=== PATIENT | female | born 1955 | race Caucasian/White ===

== ENCOUNTER 2019-05-10 09:16 | Emergency (ER) | payer MEDICARE ==
--- NOTE | 2019-05-10 09:49 | EDPHYS ---
Physician Documentation [facility] Name: Dinora Forrest Age: 63 yrs Sex: Female : 1955 Arrival Date: 05/10/2019 Time: 09:18 Bed 20 Private MD: Alexis Gaffney E ED Physician Guicho Powell HPI: 05/10 09:47 This 63 yrs old Female presents to ER via Ambulatory with complaints of pm1 Medication Refill. 09:47 The patient presents to the emergency department requesting refill(s) for: metoprolol, pm1 valium, lisinopril, trazadone, and protonix. The patient chronically suffers from chronic back pain, anxiety, HTN. The patient has not recently seen a physician, Patient missed her appointment with her PCP yesterday and reports that she has ran out of her medications. patient receives [place] and baclofen from her pain management physician. Historical: - Allergies: 09:37 Benadryl; sv - Home Meds: 09:37 metoprolol tartrate 50 mg oral tab once daily [Active]; Valium 10 mg Oral tab 1 tab 2 sv times per day [Active]; baclofen 10 mg Oral tab Q8h [Active]; [place] 10-325 mg Oral tab 1 tab every 6 hours [Active]; lisinopril 20 mg Oral tab 1 tab once daily [Active]; trazodone 150 mg Oral tab nightly [Active]; Protonix 40 mg Oral TbEC 1 tab once daily [Active]; - PMHx: 09:37 gastric ulcer; Hypertension; Anxiety; sv - PSHx: 09:37 back surgery; sv - Immunization history:: Adult Immunizations up to date. - Social history:: Smoking status: unknown. - Ebola Screening: : No symptoms or risks identified at this time. ROS: 09:47 Constitutional: Negative for fever, chills, and weight loss, Eyes: Negative for injury, pm1 pain, redness, and discharge, ENT: Negative for injury, pain, and discharge, Neck: Negative for injury, pain, and swelling, Cardiovascular: Negative for chest pain, palpitations, and edema, Respiratory: Negative for shortness of breath, cough, wheezing, and pleuritic chest pain, Abdomen/GI: Negative for abdominal pain, nausea, vomiting, diarrhea, and constipation. 09:47 : Negative for injury, bleeding, discharge, and swelling, MS/Extremity: Negative for injury and deformity, Skin: Negative for injury, rash, and discoloration, Neuro: Negative for headache, weakness, numbness, tingling, and seizure. 09:47 Back: Positive for chronic back pain managed by pain management. Exam: 09:47 Constitutional: This is a well developed, well nourished patient who is awake, alert, pm1 and in no acute distress. Head/Face: Normocephalic, atraumatic. Neck: Trachea midline, no thyromegaly or masses palpated, and no cervical lymphadenopathy. Supple, full range of motion without nuchal rigidity, or vertebral point tenderness. No Meningismus. Chest/axilla: Normal chest wall appearance and motion. Nontender with no deformity. No lesions are appreciated. Cardiovascular: Regular rate and rhythm with a normal S1 and S2. No gallops, murmurs, or rubs. Normal PMI, no JVD. No pulse deficits. Respiratory: Lungs have equal breath sounds bilaterally, clear to auscultation and percussion. No rales, rhonchi or wheezes noted. No increased work of breathing, no retractions or nasal flaring. Back: No spinal tenderness. No costovertebral tenderness. Full range of motion. Skin: Warm, dry with normal turgor. Normal color with no rashes, no lesions, and no evidence of cellulitis. MS/ Extremity: Pulses equal, no cyanosis. Neurovascular intact. Full, normal range of motion. 09:47 Neuro: Orientation: is normal, Motor: is normal, moves all fours, Gait: is steady, at a normal pace, without difficulty. Vital Signs: 09:37 BP 153 / 87; Pulse 62; Resp 20; Temp 98.3; Pulse Ox 98% ; Weight 54.43 kg; Height 5 ft. sv 2 in. (157.48 cm); 09:37 Body Mass Index 21.95 (54.43 kg, 157.48 cm) sv MDM: 09:24 Patient medically screened. pm1 09:47 Data reviewed: vital signs. Data interpreted: Pulse oximetry: on room air is 98 %. pm1 Interpretation: normal. Counseling: I had a detailed discussion with the patient and/or guardian regarding: the historical points, exam findings, and any diagnostic results supporting the discharge/admit diagnosis, the need for outpatient follow up, PCP for refills of her medication. 09:47 ED course: Patient sees pain management for chronic pain and is prescribed [place] and pm1 baclofen. PCP prescribes the rest of her medication including Valium 10 mg. Instructed patient to follow up with PCP or pain management for refill of her Valium. Administered Medications: No medications were administered Disposition: 14:01 Co-signature as Attending Physician, Guicho Powell MD. rn Disposition: 05/10/19 09:48 Discharged to Home. Impression: Encounter for issue of repeat prescription. - Condition is Stable. - Discharge Instructions: Medicine Refill at the Emergency Department. - Prescriptions for trazodone 150 mg Oral tablet - take 1 tablet by ORAL route Every night; 14 tablet. Protonix 40 mg Oral Tablet, Delayed Release (E.C.) - take 1 tablet by ORAL route once daily; 14 tablet. Lisinopril 20 mg Oral Tablet - take 1 tablet by ORAL route once daily; 14 tablet. Metoprolol Tartrate 50 mg Oral Tablet - take 1 tablet by ORAL route once daily take with meal; 14 tablet. - Medication Reconciliation Form, Thank You Letter, Antibiotic Education, Prescription Opioid Use form. - Follow up: Emergency Department; When: As needed; Reason: Worsening of condition. Follow up: Alexis Gaffney MD; When: 2 - 3 days; Reason: Recheck today's complaints, Continuance of care, Re-evaluation by your physician. - Problem is new. - Symptoms have improved. Signatures: Sandie Babcock RN RN sv Nieto, Roman, MD MD rn Marinas, Patrick, NP [employer] pm1 Corrections: (The following items were deleted from the chart) 10:46 09:48 05/10/2019 09:48 Discharged to Home. Impression: Encounter for issue of repeat sv prescription. Condition is Stable. Forms are Medication Reconciliation Form, Thank You Letter, Antibiotic Education, Prescription Opioid Use. Follow up: Emergency Department; When: As needed; Reason: Worsening of condition. Follow up: Alexis Gaffney; When: 2 - 3 days; Reason: Recheck today's complaints, Continuance of care, Re-evaluation by your physician. Problem is new. Symptoms have improved. pm1
--- NOTE | 2019-05-10 09:49 | ER ---
Nurse's Notes [facility] Name: Dinora Forrest Age: 63 yrs Sex: Female : 1955 Arrival Date: 05/10/2019 Time: 09:18 Bed 20 Private MD: Alexis Gaffney E Diagnosis: Encounter for issue of repeat prescription Presentation: 05/10 09:31 Presenting complaint: Patient states: needs BP, stomach ulcer, anxiety med refilled. sv Missed her appt yesterday at Dr Gaffney office. Transition of care: patient was not received from another setting of care. Onset of symptoms was May 10, 2019. Initial Sepsis Screen: Does the patient meet any 2 criteria? No. Patient's initial sepsis screen is negative. Does the patient have a suspected source of infection? No. Patient's initial sepsis screen is negative. Care prior to arrival: None. 09:31 Method Of Arrival: Ambulatory sv 09:31 Acuity: MIRTA 5 sv 09:31 Risk Assessment: Do you want to hurt yourself or someone else? Patient reports no sv desire to harm self or others. Triage Assessment: 09:31 General: Appears in no apparent distress. comfortable, Behavior is calm, cooperative, sv appropriate for age. Pain: Denies pain. Neuro: Level of Consciousness is awake, alert, obeys commands, Gait is steady. Respiratory: Airway is patent Respiratory effort is even, unlabored, Respiratory pattern is regular, symmetrical. Derm: Skin is normal. Historical: - Allergies: 09:37 Benadryl; sv - Home Meds: 09:37 metoprolol tartrate 50 mg oral tab once daily [Active]; Valium 10 mg Oral tab 1 tab 2 sv times per day [Active]; baclofen 10 mg Oral tab Q8h [Active]; [place] 10-325 mg Oral tab 1 tab every 6 hours [Active]; lisinopril 20 mg Oral tab 1 tab once daily [Active]; trazodone 150 mg Oral tab nightly [Active]; Protonix 40 mg Oral TbEC 1 tab once daily [Active]; - PMHx: 09:37 gastric ulcer; Hypertension; Anxiety; sv - PSHx: 09:37 back surgery; sv - Immunization history:: Adult Immunizations up to date. - Social history:: Smoking status: unknown. - Ebola Screening: : No symptoms or risks identified at this time. Screenin:31 Abuse screen: Denies threats or abuse. Denies injuries from another. Abuse screen: sv Denies threats or abuse. Nutritional screening: No deficits noted. Tuberculosis screening: No symptoms or risk factors identified. Fall Risk None identified. Assessment: 10:04 Reassessment: Patient appears in no apparent distress at this time. No changes from sv previously documented assessment. Patient and/or family updated on plan of care and expected duration. Pain level reassessed. Patient is alert, oriented x 3, equal unlabored respirations, skin warm/dry/pink. Vital Signs: 09:37 BP 153 / 87; Pulse 62; Resp 20; Temp 98.3; Pulse Ox 98% ; Weight 54.43 kg; Height 5 ft. sv 2 in. (157.48 cm); 09:37 Body Mass Index 21.95 (54.43 kg, 157.48 cm) sv ED Course: 09:18 Patient arrived in ED. rg4 09:18 Alexis Gaffney MD is Private Physician. rg4 09:24 Delmar De Leon [facility]. pm1 09:24 Guicho Powell MD is Attending Physician. pm1 09:24 Sandie Babcock RN is Primary Nurse. sv 09:31 Arm band placed on Patient placed in an exam room, on a stretcher. sv 09:31 Patient has correct armband on for positive identification. Bed in low position. Door sv closed. Head of bed elevated. 09:32 Triage completed. sv 09:37 Nurse Practitioner and/or Physician Senior Environmental Consultant to see patient. sv 09:47 Alexis Gaffney MD is Referral Physician. pm1 10:04 No provider procedures requiring assistance completed. Patient did not have IV access sv during this emergency room visit. Administered Medications: No medications were administered Outcome: 09:48 Discharge ordered by . pm1 10:04 Discharged to home ambulatory. sv 10:04 Condition: stable 10:04 Discharge instructions given to patient, Instructed on discharge instructions, follow up and referral plans. medication usage, Demonstrated understanding of instructions, follow-up care, medications, Prescriptions given X 4. 10:46 Patient left the ED. sv Signatures: Sandie Babcock RN RN sv Delmar De Leon NP [employer] pm1 Huma Holguin rg4 Corrections: (The following items were deleted from the chart) 10:46 10:04 Discharge instructions given to patient, sv sv
[2019-05-10 10:50] VITALS: BP 153/87; TEMP 98.3; O2SAT 98
== END 2019-05-10 10:46 | disposition home or self-care (01) ==
LOC: ER 09:16
DX: Z76.0 Encounter for issue of repeat prescription (principal); I10 Essential (primary) hypertension; F41.8 Other specified anxiety disorders; F41.9 Anxiety disorder, unspecified; K25.9 Gastric ulcer, unspecified as acute or chronic, without hemorrhage or perforation
CPT/HCPCS: 99282

== ENCOUNTER 2019-05-12 13:21 | Emergency (ER) | payer MEDICARE ==
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
[2019-05-12 14:23] LABS: Absolute Lymphocytes (CBC) 2.2 K/uL (0.7-4.9); Basophils % 0.5 % (0-1.3); Lymphocytes % 26.3 % (15.3-44.8); MPV 7.4 fL (7.6-11.3); RBC Red Blood Cell Count 4.56 M/uL (3.86-4.86)
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
[2019-05-12 14:37] LABS: Potassium 4.1 mmol/L (3.5-5.1)
[2019-05-12] MEDS ORDERED: NA CHLORIDE 0.9% 1,000 ML ONE (14:41)
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
[2019-05-12] MEDS ORDERED: FENTANYL CITR 100 MCG/2 ML ONE (15:03)
[2019-05-12] MEDS ORDERED: ONDANSETRON 4 MG/2 ML VIAL ONE (15:03)
[2019-05-12 15:38] VITALS: BP 151/98; TEMP 97.7; O2SAT 97
--- NOTE | 2019-05-12 15:41 | EKG ---
Test Date: 2019-05-12 Test Time: 13:20:23 Assistant Teacher Primary: CHLOE MEASUREMENT RESULTS: Intervals: Rate: 101 VA: 124 QRSD: 82 QT: 374 QTc: 484 Dale: P: 77 VA: 124 QRS: 90 T: 54 INTERPRETIVE STATEMENTS: Sinus tachycardia Possible Left atrial enlargement Rightward axis Borderline ECG No previous ECG available for comparison Electronically Signed On 05-12-19 15:40:58 CDT by Ermias Chapman
--- OUTSIDE RECORDS SUMMARY | 2019-05-25 13:24 | XMS REPORT ---
:1955 [facility] Address [address] [place] [address] Care Team Providers Name Role Phone Unavailable Unavailable Unavailable Problems This patient has no known problems. Allergies, Adverse Reactions, Alerts This patient has no known allergies or adverse reactions. Medications This patient has no known medications.
== END 2019-05-12 15:33 | disposition home or self-care (01) ==
LOC: ER 13:21
DX: S20.219A Contusion of unspecified front wall of thorax, initial encounter (principal); V47.5XXA Car driver injured in collision with fixed or stationary object in traffic accident, initial encounter; I10 Essential (primary) hypertension; Z72.0 Tobacco use; Z88.8 Allergy status to other drugs, medicaments and biological substances
CPT/HCPCS: 96361; 93005; 85025; 80048; 36415; 86900; 86850; 86901; 70450; 72125; 71260; 71045; 96375; 96374; 99285; Q9967; J3010; J7030; J2405

== ENCOUNTER → 2023-08-04 | Emergency (ER) | payer OTHER ==
--- OUTSIDE RECORDS SUMMARY | 2023-08-04 11:55 | XMS REPORT | Continuity of Care Document ---
Author Name Unknown Address [address] [place] [address] [facility] Address 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 Role Phone [place], [place] DEPT OF Primary Care Physician Unavailable [id number] Attending Clinician Unavailable TYLER WEINSTEIN Attending Clinician Unavailab ROSENDO Cutler Attending Clinician Unavailable ROSENDO CONTI Attending Clinician Unavailable Rosendo Conti DO Attending Clinician Therapist, [facility] Respiratory Attending Clinician U jimmieailciro Doctor Unassigned, [place] Attending Clinician U KENNETH Gallego Attending Clinician Unava ilable RADIOLOGY Attending Clinician Unavailable Radiology Attending Clinician Unavailable Claire Goncalves DO Attending Clinician [phone] CYRUS WHITEHEAD Attending Clinician UnavaTINO Goins Attending Clinician UnavailHIPOLITO Wilson Attending Clinician Unavailable NAGI ROLLE Attending Clinician Unavailable JONNA LUNA Attending Clinician Unavailable TARA AGUILAR Attending Clinician Unavailable JANKI SANTOS Attending Clinician Unavailable ASHLY RIVERA Attending Clinician Unavailable CLAIRE GONCALVES Attending Clinician Unavailab le [id number] Admitting Clinician Unavailable TYLER WEINSTEIN Admitting Clinician Unavailab AMRIT Fierro Admitting Clinician UnaBAKARI Borja Admitting Clinician UnavailJONNA Patel Admitting Clinician Unavailable TARA AGUILAR Admitting Clinician Unavailable JANKI SANTOS Admitting Clinician Unavailable ASHLY RIVERA Admitting Clinician Unavailable Payers Payer Name Policy Type Policy Number Effective Date Expirati on Date Source [employer] TOTAL CARE MEDICARE HMO [id number] 2020 00:00:00 MALIKA NAVARRETE PLS HMO [id number] 2020 00:00:00 [employer] MEDICARE ADVANTAGE [id number] 2004 00:00:00 [facility] [place] 5 [id number] 2022 00:00:00 MEDICARE PART A \\T\\ B [id number] 2004 00:00:00 Problems Condition Name Condition Details Condition Category Status Onset Date Resolution Date Last Treatment Date Treating Clinician Comments Source Opioid overdose Opioid overdose Disease Active 9-11 00:00: 00 [facility] Overdose Overdose Disease Active 4-18 00:00: 00 [facility] Confusion Confusion Disease Active 08-16 00:00: 00 [facility] Allergies, Adverse Reactions, Alerts Allergy Name Allergy Type Status Severity Reaction(s) Onset Date Inactive Date Treating Clinician Comments Source Diphenhy dramine Hcl Propensi ty to adverse reaction s Active Palpitations 2017-07 00:00: 00 [facility] DIPHENHY DRAMINE HCL DRUG INGREDI Active High Palpitations 2017-07 00:00: 00 [facility] Social History Social Habit Start Date Stop Date Quantity Comments Source History of tobacco use Cigarette Smoker [facility] History SDOH Alcohol Std Drinks [facility] History SDOH Alcohol Binge [facility] History SDOH Alcohol Comment [place] [facility] Gender identity [facility] Exposure to SARS-CoV-2 (event) 2022-12-02 00:00:00 2022-12-12 09:52:00 Not sure [facility] Alcohol intake 2021-04-17 00:00:00 2021-04-17 00:00:00 Lifetime non-drinker (finding) [facility] History of Social function 2020-12-29 00:00:00 2020-12-29 00:00:00 [facility] Cigarettes smoked current (pack per day) - Reported 2020-01-16 00:00:00 2020-01-16 00:00:00 [facility] Tobacco use and exposure 2020-01-16 00:00:00 2020-01-16 00:00:00 Smokeless tobacco non-user [facility] Tobacco Comment 2020-01-16 00:00:00 2020-01-16 00:00:00 half a pack/day [facility] History SDOH Alcohol Frequency 2019-10-21 00:00:00 2019-10-21 00:00:00 1 [facility] Sex Ass[birth year] At 1955 00:00:00 1955 00:00:00 [facility] Smoking Status Start Date Stop Date Source Smokes tobacco daily 2020-01-16 00:00:00 [facility] Medications Ordered Medication Name Filled Medication Name Start Date Stop Date Current Medication? Ordering Clinician Indication Dosage Frequency Signature (SIG) Comments Components Source albuterol 90 mcg/actuati on inhaler 02-15 00:00: 00 Yes [id number] 2{puff} Inhale 2 Puffs every 6 (six) hours as needed for Wheezing or Shortness of Breath. [facility] albuterol 90 mcg/actuati on inhaler 02-15 00:00: 00 Yes [id number] 2{puff} Inhale 2 Puffs every 6 (six) hours as needed for Wheezing or Shortness of Breath. [facility] albuterol 90 mcg/actuati on inhaler 02-15 00:00: 00 Yes [id number] 2{puff} Inhale 2 Puffs every 6 (six) hours as needed for Wheezing or Shortness of Breath. [facility] albuterol 90 mcg/actuati on inhaler 02-15 00:00: 00 Yes [id number] 2{puff} Inhale 2 Puffs every 6 (six) hours as needed for Wheezing or Shortness of Breath. [facility] albuterol 90 mcg/actuati on inhaler 02-15 00:00: 00 Yes [id number] 2{puff} Inhale 2 Puffs every 6 (six) hours as needed for Wheezing or Shortness of Breath. [facility] budesonide- formoteroL (SYMBICORT) 160-4.5 mcg/actuati on inhaler 02-14 00:00: 00 Yes [id number] 2{puff} Inhale 2 Puffs in the morning and 2 Puffs in the evening. [facility] budesonide- formoteroL (SYMBICORT) 160-4.5 mcg/actuati on inhaler 02-14 00:00: 00 Yes [id number] 2{puff} Inhale 2 Puffs in the morning and 2 Puffs in the evening. [facility] budesonide- formoteroL (SYMBICORT) 160-4.5 mcg/actuati on inhaler 02-14 00:00: 00 Yes [id number] 2{puff} Inhale 2 Puffs in the morning and 2 Puffs in the evening. [facility] budesonide- formoteroL (SYMBICORT) 160-4.5 mcg/actuati on inhaler 02-14 00:00: 00 Yes [id number] 2{puff} Inhale 2 Puffs in the morning and 2 Puffs in the evening. [facility] budesonide- formoteroL (SYMBICORT) 160-4.5 mcg/actuati on inhaler 02-14 00:00: 00 Yes [id number] 2{puff} Inhale 2 Puffs in the morning and 2 Puffs in the evening. [facility] budesonide- formoteroL (SYMBICORT) 160-4.5 mcg/actuati on inhaler 02-14 00:00: 00 Yes [id number] 2{puff} Inhale 2 Puffs in the morning and 2 Puffs in the evening. [facility] gabapentin 300 mg capsule 12-12 10:04: 24 Yes 300mg Take 1 capsule by mouth in the morning and 1 capsule at noon and 1 capsule in the evening. [facility] BABY ASPIRIN ORAL 12-12 10:04: 24 Yes Take by mouth. [facility] HYDROmorpho ne 4 mg tablet 12-12 10:04: 24 Yes 4mg Take 1 tablet by mouth in the morning and 1 tablet at noon and 1 tablet in the evening. [facility] gabapentin 300 mg capsule 12-12 10:04: 24 Yes 300mg Take 1 capsule by mouth in the morning and 1 capsule at noon and 1 capsule in the evening. [facility] BABY ASPIRIN ORAL 12-12 10:04: 24 Yes Take by mouth. [facility] HYDROmorpho ne 4 mg tablet 12-12 10:04: 24 Yes 4mg Take 1 tablet by mouth in the morning and 1 tablet at noon and 1 tablet in the evening. [facility] gabapentin 300 mg capsule 12-12 10:04: 24 Yes 300mg Take 1 capsule by mouth in the morning and 1 capsule at noon and 1 capsule in the evening. [facility] BABY ASPIRIN ORAL 12-12 10:04: 24 Yes Take by mouth. [facility] HYDROmorpho ne 4 mg tablet 12-12 10:04: 24 Yes 4mg Take 1 tablet by mouth in the morning and 1 tablet at noon and 1 tablet in the evening. [facility] gabapentin 300 mg capsule 12-12 10:04: 24 Yes 300mg Take 1 capsule by mouth in the morning and 1 capsule at noon and 1 capsule in the evening. [facility] BABY ASPIRIN ORAL 12-12 10:04: 24 Yes Take by mouth. [facility] HYDROmorpho ne 4 mg tablet 12-12 10:04: 24 Yes 4mg Take 1 tablet by mouth in the morning and 1 tablet at noon and 1 tablet in the evening. [facility] gabapentin 300 mg capsule 12-12 10:04: 24 Yes 300mg Take 1 capsule by mouth in the morning and 1 capsule at noon and 1 capsule in the evening. [facility] BABY ASPIRIN ORAL 12-12 10:04: 24 Yes Take by mouth. [facility] HYDROmorpho ne 4 mg tablet 12-12 10:04: 24 Yes 4mg Take 1 tablet by mouth in the morning and 1 tablet at noon and 1 tablet in the evening. [facility] gabapentin 300 mg capsule 12-12 10:04: 24 Yes 300mg Take 1 capsule by mouth in the morning and 1 capsule at noon and 1 capsule in the evening. [facility] BABY ASPIRIN ORAL 12-12 10:04: 24 Yes Take by mouth. [facility] HYDROmorpho ne 4 mg tablet 12-12 10:04: 24 Yes 4mg Take 1 tablet by mouth in the morning and 1 tablet at noon and 1 tablet in the evening. [facility] gabapentin 300 mg capsule 12-12 10:04: 24 Yes 300mg Take 1 capsule by mouth in the morning and 1 capsule at noon and 1 capsule in the evening. [facility] BABY ASPIRIN ORAL 12-12 10:04: 24 Yes Take by mouth. [facility] HYDROmorpho ne 4 mg tablet 12-12 10:04: 24 Yes 4mg Take 1 tablet by mouth in the morning and 1 tablet at noon and 1 tablet in the evening. [facility] gabapentin 300 mg capsule 12-12 10:04: 24 Yes 300mg Take 1 capsule by mouth in the morning and 1 capsule at noon and 1 capsule in the evening. [facility] BABY ASPIRIN ORAL 12-12 10:04: 24 Yes Take by mouth. [facility] HYDROmorpho ne 4 mg tablet 12-12 10:04: 24 Yes 4mg Take 1 tablet by mouth in the morning and 1 tablet at noon and 1 tablet in the evening. [facility] gabapentin 300 mg capsule 12-12 10:04: 24 Yes 300mg Take 1 capsule by mouth in the morning and 1 capsule at noon and 1 capsule in the evening. [facility] BABY ASPIRIN ORAL 12-12 10:04: 24 Yes Take by mouth. [facility] HYDROmorpho ne 4 mg tablet 12-12 10:04: 24 Yes 4mg Take 1 tablet by mouth in the morning and 1 tablet at noon and 1 tablet in the evening. [facility] gabapentin 300 mg capsule 12-12 10:04: 24 Yes 300mg Take 1 capsule by mouth in the morning and 1 capsule at noon and 1 capsule in the evening. [facility] BABY ASPIRIN ORAL 12-12 10:04: 24 Yes Take by mouth. [facility] HYDROmorpho ne 4 mg tablet 12-12 10:04: 24 Yes 4mg Take 1 tablet by mouth in the morning and 1 tablet at noon and 1 tablet in the evening. [facility] budesonide- formoteroL (SYMBICORT) 160-4.5 mcg/actuati on inhaler 12-12 00:00: 00 Yes [id number] 2{puff} Inhale 2 Puffs in the morning and 2 Puffs in the evening. [facility] budesonide- formoteroL (SYMBICORT) 160-4.5 mcg/actuati on inhaler 12-12 00:00: 00 Yes [id number] 2{puff} Inhale 2 Puffs in the morning and 2 Puffs in the evening. [facility] budesonide- formoteroL (SYMBICORT) 160-4.5 mcg/actuati on inhaler 12-12 00:00: 00 Yes [id number] 2{puff} Inhale 2 Puffs in the morning and 2 Puffs in the evening. [facility] budesonide- formoteroL (SYMBICORT) 160-4.5 mcg/actuati on inhaler 12-12 00:00: 00 02-14 00:00 :00 No [id number] 2{puff} Inhale 2 Puffs in the morning and 2 Puffs in the evening. [facility] LORazepam (ATIVAN) injection 1 mg 2020-07 17:45: 00 04-17 16:55 :00 No 1mg 1 mg, Slow IV Push, ONCE, 1 dose, On 04/17/21 at 1245, STAT [facility] LORazepam (ATIVAN) injection 1 mg 04-14 19:00: 00 04-14 17:52 :00 No 1mg 1 mg, Slow IV Push, ONCE, 1 dose, On [place] 04/14/21 at 1400, STAT [facility] nitroglycer in (NITROSTAT) sublingual tablet 0.4 mg 04-14 17:36: 59 Yes .4mg 0.4 mg, Sublingual , Q5MIN PRN, 3 doses, Starting on [place] 04/14/21 at 1236, Until Discontinu ed, LAMAR, Chest pain [facility] TRAZODONE 150 mg tablet 2020-0 01-24 00:00: 00 Yes [id number] TAKE 1 TABLET BY MOUTH AT BEDTIME [facility] TRAZODONE 150 mg tablet 2020-0 01-24 00:00: 00 Yes [id number] TAKE 1 TABLET BY MOUTH AT BEDTIME [facility] TRAZODONE 150 mg tablet 2020-0 01-24 00:00: 00 Yes [id number] TAKE 1 TABLET BY MOUTH AT BEDTIME [facility] TRAZODONE 150 mg tablet 2020-0 01-24 00:00: 00 Yes [id number] TAKE 1 TABLET BY MOUTH AT BEDTIME [facility] TRAZODONE 150 mg tablet 2020-0 01-24 00:00: 00 Yes [id number] TAKE 1 TABLET BY MOUTH AT BEDTIME [facility] TRAZODONE 150 mg tablet 2020-0 01-24 00:00: 00 Yes [id number] TAKE 1 TABLET BY MOUTH AT BEDTIME [facility] TRAZODONE 150 mg tablet 2020-0 12 00:00: 00 Yes [id number] TAKE 1 TABLET BY MOUTH AT BEDTIME [facility] TRAZODONE 150 mg tablet 2020-0 12 00:00: 00 Yes [id number] TAKE 1 TABLET BY MOUTH AT BEDTIME [facility] TRAZODONE 150 mg tablet 2020-0 12 00:00: 00 Yes [id number] TAKE 1 TABLET BY MOUTH AT BEDTIME [facility] TRAZODONE 150 mg tablet 2020-0 7-12 00:00: 00 Yes [id number] TAKE 1 TABLET BY MOUTH AT BEDTIME [facility] TRAZODONE 150 mg tablet 1-0 7-12 00:00: 00 Yes [id number] TAKE 1 TABLET BY MOUTH AT BEDTIME [facility] TRAZODONE 150 mg tablet 1-0 7-12 00:00: 00 Yes [id number] TAKE 1 TABLET BY MOUTH AT BEDTIME [facility] TRAZODONE 150 mg tablet 1-0 7-12 00:00: 00 Yes [id number] TAKE 1 TABLET BY MOUTH AT BEDTIME [facility] TRAZODONE 150 mg tablet 1-0 7-12 00:00: 00 Yes [id number] TAKE 1 TABLET BY MOUTH AT BEDTIME [facility] TRAZODONE 150 mg tablet 2020-0 7-12 00:00: 00 Yes [id number] TAKE 1 TABLET BY MOUTH AT BEDTIME [facility] diazePAM 10 mg tablet 2020-0 427 00:00: 00 Yes [id number] 10mg Take 1 tablet by mouth 3 (three) times daily as needed (anxiety). [facility] diazePAM 10 mg tablet 1-0 427 00:00: 00 Yes [id number] 10mg Take 1 tablet by mouth 3 (three) times daily as needed (anxiety). [facility] diazePAM 10 mg tablet 2020-0 427 00:00: 00 Yes [id number] 10mg Take 1 tablet by mouth 3 (three) times daily as needed (anxiety). [facility] diazePAM 10 mg tablet 1-0 427 00:00: 00 Yes [id number] 10mg Take 1 tablet by mouth 3 (three) times daily as needed (anxiety). [facility] diazePAM 10 mg tablet 1-0 4-27 00:00: 00 Yes [id number] 10mg Take 1 tablet by mouth 3 (three) times daily as needed (anxiety). [facility] diazePAM 10 mg tablet 1-0 4-27 00:00: 00 Yes [id number] 10mg Take 1 tablet by mouth 3 (three) times daily as needed (anxiety). [facility] tablet 0 11-09 00:00: 00 Yes [id number] 10mg Take 1 tablet by mouth 3 (three) times daily as needed (anxiety). [facility] diazePAM 10 mg tablet 0 11-09 00:00: 00 Yes [id number] 10mg Take 1 tablet by mouth 3 (three) times daily as needed (anxiety). [facility] diazePAM 10 mg tablet 2020-0 11-09 00:00: 00 Yes [id number] 10mg Take 1 tablet by mouth 3 (three) times daily as needed (anxiety). [facility] mg tablet 2020-0 11-09 00:00: 00 Yes [id number] 10mg Take 1 tablet by mouth 3 (three) times daily as needed (anxiety). [facility] diazePAM 10 mg tablet 2020-0 11-09 00:00: 00 Yes [id number] 10mg Take 1 tablet by mouth 3 (three) times daily as needed (anxiety). [facility] diazePAM 10 mg tablet 2020-0 11-09 00:00: 00 Yes [id number] 10mg Take 1 tablet by mouth 3 (three) times daily as needed (anxiety). [facility] diazePAM 10 mg tablet 0 11-09 00:00: 00 Yes [id number] 10mg Take 1 tablet by mouth 3 (three) times daily as needed (anxiety). [facility] diazePAM 10 mg tablet 2020-0 11-09 00:00: 00 Yes [id number] 10mg Take 1 tablet by mouth 3 (three) times daily as needed (anxiety). [facility] diazePAM 10 mg tablet 0 11-09 00:00: 00 Yes [id number] 10mg Take 1 tablet by mouth 3 (three) times daily as needed (anxiety). [facility] losartan 100 mg tablet 2020-0 10-27 09:41: 15 Yes 100mg Take 100 mg by mouth daily. [facility] losartan 100 mg tablet 2020-0 14 09:41: 15 Yes 100mg Take 100 mg by mouth daily. [facility] losartan 100 mg tablet 2020-0 4-14 09:41: 15 Yes 100mg Take 100 mg by mouth daily. [facility] losartan 100 mg tablet 0 10-27 09:41: 15 Yes 100mg Take 100 mg by mouth daily. [facility] 100 mg tablet 0 10-27 09:41: 15 Yes 100mg Take 100 mg by mouth daily. [facility] losartan 100 mg tablet 0 10-27 09:41: 15 Yes 100mg Take 100 mg by mouth daily. [facility] losartan 100 mg tablet 0 10-27 09:41: 15 Yes 100mg Take 100 mg by mouth daily. [facility] losartan 100 mg tablet 0 10-27 09:41: 15 Yes 100mg Take 100 mg by mouth daily. [facility] losartan 100 mg tablet 0 10-27 09:41: 15 Yes 100mg Take 100 mg by mouth daily. [facility] losartan 100 mg tablet 0 10-27 09:41: 15 Yes 100mg Take 100 mg by mouth daily. [facility] losartan 100 mg tablet 10-27 09:41: 15 Yes 100mg Take 100 mg by mouth daily. [facility] losartan 100 mg tablet 10-27 09:41: 15 Yes 100mg Take 100 mg by mouth daily. [facility] losartan 100 mg tablet 10-27 09:41: 15 Yes 100mg Take 100 mg by mouth daily. [facility] losartan 100 mg tablet 10-27 09:41: 15 Yes 100mg Take 100 mg by mouth daily. [facility] losartan 100 mg tablet 0 10-27 09:41: 15 Yes 100mg Take 100 mg by mouth daily. [facility] HYDROmorpho ne (DILAUDID) 4 mg tablet 0 10-20 13:07: 21 Yes 4mg Take 4 mg by mouth 3 (three) times daily. [facility] HYDROmorpho ne (DILAUDID) 4 mg tablet 2020-0 10-20 13:07: 21 Yes 4mg Take 4 mg by mouth 3 (three) times daily. [facility] HYDROmorpho ne (DILAUDID) 4 mg tablet 10-20 13:07: 21 Yes 4mg Take 4 mg by mouth 3 (three) times daily. [facility] HYDROmorpho ne (DILAUDID) 4 mg tablet 10-20 13:07: 21 Yes 4mg Take 4 mg by mouth 3 (three) times daily. [facility] HYDROmorpho ne (DILAUDID) 4 mg tablet 10-20 13:07: 21 Yes 4mg Take 4 mg by mouth 3 (three) times daily. [facility] metoprolol tartrate 50 mg tablet 04-13 00:00: 00 Yes [id number] 50mg Take 1 tablet by mouth 2 (two) times daily. [facility] metoprolol tartrate 50 mg tablet 04-13 00:00: 00 Yes [id number] 50mg Take 1 tablet by mouth 2 (two) times daily. [facility] metoprolol tartrate 50 mg tablet 04-13 00:00: 00 Yes [id number] 50mg Take 1 tablet by mouth 2 (two) times daily. [facility] metoprolol tartrate 50 mg tablet 04-13 00:00: 00 Yes [id number] 50mg Take 1 tablet by mouth 2 (two) times daily. [facility] metoprolol tartrate 50 mg tablet 04-13 00:00: 00 Yes [id number] 50mg Take 1 tablet by mouth 2 (two) times daily. [facility] metoprolol tartrate 50 mg tablet 0 04-13 00:00: 00 Yes [id number] 50mg Take 1 tablet by mouth 2 (two) times daily. [facility] metoprolol tartrate 50 mg tablet 04-13 00:00: 00 Yes [id number] 50mg Take 1 tablet by mouth 2 (two) times daily. [facility] metoprolol tartrate 50 mg tablet 2019-0 04-13 00:00: 00 Yes [id number] 50mg Take 1 tablet by mouth 2 (two) times daily. [facility] metoprolol tartrate 50 mg tablet 04-13 00:00: 00 Yes [id number] 50mg Take 1 tablet by mouth 2 (two) times daily. [facility] metoprolol tartrate 50 mg tablet 04-13 00:00: 00 Yes [id number] 50mg Take 1 tablet by mouth 2 (two) times daily. [facility] metoprolol tartrate 50 mg tablet 04-13 00:00: 00 Yes [id number] 50mg Take 1 tablet by mouth 2 (two) times daily. [facility] metoprolol tartrate 50 mg tablet 04-13 00:00: 00 Yes [id number] 50mg Take 1 tablet by mouth 2 (two) times daily. [facility] metoprolol tartrate 50 mg tablet 04-13 00:00: 00 Yes [id number] 50mg Take 1 tablet by mouth 2 (two) times daily. [facility] metoprolol tartrate 50 mg tablet 04-13 00:00: 00 Yes [id number] 50mg Take 1 tablet by mouth 2 (two) times daily. [facility] metoprolol tartrate 50 mg tablet 04-13 00:00: 00 Yes [id number] 50mg Take 1 tablet by mouth 2 (two) times daily. [facility] gabapentin 300 mg capsule 03-26 14:50: 07 Yes 300mg Take 300 mg by mouth 3 (three) times daily. [facility] BABY ASPIRIN ORAL 03-26 14:50: 07 Yes Take by mouth. [facility] gabapentin 300 mg capsule 03-26 14:50: 07 Yes 300mg Take 300 mg by mouth 3 (three) times daily. [facility] BABY ASPIRIN ORAL 03-26 14:50: 07 Yes Take by mouth. [facility] gabapentin 300 mg capsule 03-26 14:50: 07 Yes 300mg Take 300 mg by mouth 3 (three) times daily. [facility] BABY ASPIRIN ORAL 0 03-26 14:50: 07 Yes Take by mouth. [facility] gabapentin 300 mg capsule 03-26 14:50: 07 Yes 300mg Take 300 mg by mouth 3 (three) times daily. [facility] BABY ASPIRIN ORAL 03-26 14:50: 07 Yes Take by mouth. [facility] gabapentin 300 mg capsule 03-26 14:50: 07 Yes 300mg Take 300 mg by mouth 3 (three) times daily. [facility] BABY ASPIRIN ORAL 03-26 14:50: 07 Yes Take by mouth. [facility] Vital Signs Vital Name Observation Time Observation Value Comments S brandon Systolic blood pressure 2022-12-12 15:04:00 127 mm[Hg] [facility] Diastolic blood pressure 2022-12-12 15:04:00 81 mm[Hg] [facility] Heart rate 2022-12-12 15:04:00 77 /min [facility] Respiratory rate 2022-12-12 15:04:00 16 /min [facility] Body height 2022-12-12 15:04:00 160 cm [facility] Body weight 2022-12-12 15:04:00 63.957 kg [facility] BMI 2022-12-12 15:04:00 24.98 kg/m2 [facility] Oxygen saturation in Arterial blood by Pulse oximetry 2022-12-12 15:04:00 97 /min [facility] Systolic blood pressure 2021-04-17 16:22:00 177 mm[Hg] [facility] Diastolic blood pressure 2021-04-17 16:22:00 92 mm[Hg] [facility] Heart rate 2021-04-17 16:22:00 66 /min [facility] Body temperature 2021-04-17 16:22:00 36.89 [place] [facility] Respiratory rate 2021-04-17 16:22:00 20 /min [facility] Body height 2021-04-17 16:22:00 157.5 cm [facility] Body weight 2021-04-17 16:22:00 49.896 kg [facility] BMI 2021-04-17 16:22:00 20.12 kg/m2 [facility] Oxygen saturation in Arterial blood by Pulse oximetry 2021-04-17 16:22:00 100 /min [facility] Systolic blood pressure 2021-04-14 17:36:00 187 mm[Hg] [facility] Diastolic blood pressure 2021-04-14 17:36:00 92 mm[Hg] [facility] [facility] Heart rate 2021-04-14 17:36:00 59 /min [facility] Respiratory rate 2021-04-14 17:36:00 20 /min [facility] Oxygen saturation in Arterial blood by Pulse oximetry 2021-04-14 16:03:00 100 /min [facility] Body temperature 2021-04-14 15:14:00 37.28 Paola [facility] Body height 2021-04-14 15:14:00 160 cm [facility] Body weight 2021-04-14 15:14:00 49.896 kg [facility] BMI 2021-04-14 15:14:00 19.49 kg/m2 [facility] Procedures Procedure Date / Time Performed Performing Clinician Source AUTHORIZATION FOR RELEASE OF PHI 2023-02-12 05:01:00 Doctor Unassigned, [place] [facility] REFERRAL- REQUEST/RESPONSE 2022-10-12 05:01:00 Doctor Unassigned, [place] [facility] CT LUNG CANCER SCREENING 2022-10-04 14:02:57 Requisiti on, Paper [facility] ASSIGNMENT OF BENEFITS 2022-10-04 13:28:57 Docto r Unassigned, [place] [facility] TROPONIN I 2021-04-17 16:30:00 Claire Goncalves [facility] HEPATIC FUNCTION PANEL ([id number]) (ALB,T.PRO,BILI T,BU/BC,ALT,AST,ALK PHOS) 2021-04-17 16:30:00 Claire Goncalves [facility] BASIC METABOLIC PANEL (NA, K, CL, CO2, GLUCOSE, BUN, CREATININE, CA) 2021-04-17 16:30:00 Claire Goncalves [facility] CBC WITH DIFF 2021-04-17 16:30:00 Claire Goncalves [facility] XR CHEST 1 VW 2021-04-14 15:29:15 [facility] 2021-04-14 15:19:00 Claire Goncalves Un [facility] TROPONIN I 2021-04-14 15:19:00 Claire Goncalves Un [facility] COMP. METABOLIC PANEL ([id number]) 2021-04-14 15:19:00 Claire Goncalves [facility] CBC WITH DIFF 2021-04-14 15:19:00 Claire Goncalves [facility] PROTHROMBIN TIME / INR 2021-04-14 15:19:00 Brenden Goncalves [facility] ACTIVATED PARTIAL THRMPLAS KATHLEEN 2021-04-14 15:19:00 Claire Goncalves [facility] Encounters Start Date/Time End Date/Time Encounter Type Admission Type Attending [facility] Department Encounter ID Source 2021-08-11 09:39:14 Outpatient 3 [id number] [facility] REF [id number] [facility] [place] [facility] 2021-08-11 09:39:08 Outpatient 3 [id number] E[facility] REF [id number] [facility] [place] 2021-05-17 03:24:[address] [facility] [id number] [facility] 2021-05-17 02:40:[address] [facility] [id number] [facility] 2021-05-16 05:50:[address] [facility] [id number] [facility] 2021-05-16 01:21:[address] [facility] [id number] [facility] 2021-05-15 02:26:[address] [facility] [id number] [facility] 2021-05-15 02:03:[address] [facility] [id number] [facility] 2021-05-14 07:56:[address] [facility] [id number] [facility] ity [facility] 2021-05-14 07:53:[address] [facility] [id number] [facility] 2021-05-14 02:15:[address] [facility] [id number] [facility] ity [facility] 2021-05-13 17:57:[address] [facility] [id number] [facility] 2021-05-13 16:58:[address] [facility] [id number] [facility] 2021-05-13 16:13:[address] [facility] [id number] [facility] 2021-05-13 15:00:[address] [facility] [id number] [facility] ity [facility] 2021-05-13 04:27:09 Outpatient [place] О[place] [id number] [facility] ity [facility] 2021-05-13 04:27:07 [facility] [id number] [facility] it[facility] 2021-05-13 04:27:[address] [facility] О[facility]ЕГ [id number] [facility] it[facility] 2021-05-12 18:21:[address] [facility] [id number] [facility] it[facility] 2021-05-12 18:10:[address] [facility] [id number] [facility] it[facility] 2021-05-12 18:08:[address] [facility] [id number] [facility] 2023-07-02 15:42:52 2023-07-02 15:42:[address] [facility] [address] 2023-06-28 09:40:33 2023-06-28 09:40:[address] [facility] [address] 2023-05-14 09:00:00 2023-05-14 09:00:00 Outpatient ROSENDO WYNNE [facility] [id number] [facility] 2023-02-28 08:49:57 2023-02-28 08:49:[address] [facility] [address] 2023-02-27 00:00:00 2023-02-27 00:00:00 [facility] 1.2.840.114 350.1.13.10 4.2.7.2.686 [id number] [facility] 2023-02-15 00:00:00 2023-02-15 00:00:00 Telephone [facility] 1.2.840.114 350.1.13.10 4.2.7.2.686 [id number] [facility] 2023-02-15 00:00:00 2023-02-15 00:00:00 [facility] 1.2.840.114 350.1.13.10 4.2.7.2.686 [id number] [facility] 2023-02-15 00:00:00 2023-02-15 00:00:00 Refill Rosendo Conti [facility] 1.2.840.114 350.1.13.10 4.2.7.2.686 [id number] [facility] 2023-02-13 09:30:00 2023-02-13 11:00:00 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 [id number] [facility] 2023-02-13 00:00:00 2023-02-13 00:00:00 Telephone Rosendo Conti [facility] 1.2.840.114 350.1.13.10 4.2.7.2.686 [id number] [facility] 2023-02-12 00:00:00 2023-02-12 00:00:00 Orders Only Doctor Unassigned, [place] [facility] 1.2.840.114 350.1.13.10 4.2.7.2.686 [id number] [facility] 2022-12-12 10:00:00 2022-12-12 10:32:25 Outpatient R [facility] [id number] [facility] 2022-12-12 10:00:00 2022-12-12 10:32:25 Office Visit Rosendo Conti [facility] 1.2.840.114 350.1.13.10 4.2.7.2.686 [id number] [facility] 2022-11-28 09:36:30 2022-11-28 09:36:30 Outpatient [facility] [address] 2022-11-15 09:56:09 2022-11-15 09:56:09 Outpatient [facility] [address] 2022-11-14 11:37:04 2022-11-14 11:37:04 Outpatient [facility] [id number] 2022-10-12 00:00:00 2022-10-12 00:00:00 Orders Only Doctor Unassigned, [place] [facility] 1.2.840.114 350.1.13.10 4.2.7.2.686 [id number] [facility] 2022-10-11 08:50:21 2022-10-11 08:50:21 Outpatient [facility] [id number] 2022-10-09 11:00:00 2022-10-09 11:00:00 Outpatient KENNETH GARCIA [id number] Nidia Lechuga 2022-10-04 08:29:42 2022-10-04 23:59:[address] [facility] [id number] [facility] 2022-10-04 08:20:00 2022-10-04 23:59:00 Hospital Encounter Radiology [facility] 1.2.840.114 350.1.13.10 4.2.7.2.686 [id number] [facility] 2022-10-04 00:00:00 2022-10-04 00:00:00 Orders Only Doctor Unassigned, [place] [facility] 1.2.840.114 350.1.13.10 4.2.7.2.686 [id number] [facility] 2022-09-26 09:34:47 2022-09-26 09:34:[address] [facility] [address] 2022-09-13 11:24:24 2022-09-13 11:24:[address] [facility] [address] 2022-08-09 08:38:15 2022-08-09 08:38:[address] [facility] [address] 2021-04-17 11:20:00 2021-04-17 13:17:00 Emergency Claire Goncalves [facility] 1.2.840.114 350.1.13.10 4.2.7.2.686 [id number] [facility] 2021-04-14 10:12:00 2021-04-14 13:27:00 Emergency Claire Goncalves [facility] 1.2.840.114 350.1.13.10 4.2.7.2.686 [id number] [facility] 2021-01-26 08:00:00 2021-01-26 08:00:[address] [facility] [id number] [facility] 2021-01-06 00:00:00 2021-01-06 00:00:[address] [facility] [id number] [facility] 2020-12-29 10:45:00 2020-12-29 10:45:[address] [facility] [id number] [facility] 2020-12-01 08:00:00 2020-12-01 08:00:[address] [facility] [id number] [facility] 2020-11-03 09:15:00 2020-11-03 09:15:[address] [facility] [id number] [facility] 2020-10-27 09:00:00 2020-10-27 09:00:[address] [facility] [id number] [facility] 2020-10-20 13:30:00 2020-10-20 13:30:[address] [facility] [id number] [facility] 2020-10-12 08:15:00 2020-10-12 08:15:[address] [facility] [id number] [facility] 2020-10-06 10:45:00 2020-10-06 10:45:[address] [facility] [id number] [facility] 2020-04-30 08:15:00 2020-04-30 08:15:[address] [facility] [id number] [facility] 2020-04-29 08:15:00 2020-04-29 08:15:[address] [facility] [id number] [facility] 2020-04-13 10:30:00 2020-04-13 10:30:[address] [facility] [id number] [facility] 2020-04-13 08:30:00 2020-04-13 08:30:[address] [facility] [id number] [facility] 2020-04-08 08:30:00 2020-04-08 08:30:[address] [facility] [id number] [facility] 2020-03-25 08:15:00 2020-03-25 08:15:[address] [facility] [id number] [facility] 2020-03-16 10:45:00 2020-03-16 10:45:[address] [facility] [id number] [facility] 2020-03-10 08:15:00 2020-03-10 08:15:[address] [facility] [id number] [facility] 2020-02-13 09:00:00 2020-02-13 09:00:[address] [facility] [id number] [facility] 2020-02-11 09:15:00 2020-02-11 09:15:[address] [facility] [id number] [facility] 2020-01-30 09:00:00 2020-01-30 09:00:[address] [facility] [id number] [facility] 2020-01-16 11:30:00 2020-01-16 11:30:[address] [facility] [id number] [facility] 2020-01-14 15:00:00 2020-01-14 15:00:[address] [facility] [id number] [facility] 2020-01-13 10:15:00 2020-01-13 10:15:[address] [facility] [id number] [facility] 2020-01-01 07:53:03 2020-01-01 23:59:[address] [facility] [id number] [facility] 2019-12-31 14:15:00 2019-12-31 14:15:[address] [facility] [id number] [facility] 2019-11-04 14:00:00 2019-11-04 14:00:[address] [facility] [id number] [facility] 2019-11-01 06:10:08 2019-11-02 13:20:00 Outpatient X JONNA LUNA [facility] JOEL [id number] [facility] 2019-10-21 09:30:00 2019-10-21 09:30:[address] [facility] [id number] [facility] 2019-10-17 11:07:38 2019-10-17 14:17:00 Emergency X TARA AGUILAR [facility] [id number] [facility] 2019-10-02 02:17:52 2019-10-02 03:59:00 Emergency X PRATEEK SANTOSRONY [facility] E[facility] [id number] [facility] 2019-09-30 01:38:28 2019-09-30 04:39:00 Emergency X TOM AMYJOVANNA [facility] E[facility] [id number] [facility] 2019-09-07 11:09:14 2019-09-07 12:35:00 Emergency X ASHLY RIVERA [facility] E[facility] [id number] [facility] 2019-07-19 13:24:14 2019-07-19 15:13:00 Emergency X CLAIRE GONCALVES [facility] E[facility] [id number] [facility] Results Test Description Test Time Test Comments Results Result Co mments Source LIPID [id number] 07:40:59* Test Item Value Reference Range Interpretation Comme nts CHOLESTEROL (test code = 2210) 131 MG/DL <200 TRIGLYCERIDES (test code = 2232) 105 MG/DL <150 HDL CHOLESTEROL (test code = 2220) 49 MG/DL >39 CALC LDL CHOL (test code = 2237) 63 MG/DL <100 NOTE: CALCULATED LDL IS BASED ON ANGIE-CHEN METHOD WHICHINCLUDES ADJUSTABLE TRIGLYCERIDE:VLDL CHOLESTEROL RATIO.THIS FACTOR VARIES BY MEASURED TRIGLYCERIDE AND NON-HDLCHOLESTEROL CONCENTRATIONS WITH INCREASED CALCULATED LDL SEENIN HIGHER TRIGLYCERIDE OR LOWER NON-HDL SPECIMENS. FOR MOREINFORMATION, SEE CLIENT ANNOUNCEMENT AT [email or web address] RISK RATIO LDL/HDL (test code = 2238) 1.29 RATIO <3.22 TSH, THIRD [id number] 07:40:36* Test Item Value Reference Range Interpretation Comme nts TSH, THIRD GENERATION (test code = 2821) 0.214 UIU/ML 0.400-4.100 L UNLESS OTHERWISE INDICATED, ALL TESTING PERFORMED AT [facility] [address] [place] [address] [employer] SERVICES MANAGER: DMITRIY SCOTT M.D. CLIA NUMBER [id number] [facility] [place]. [id number] HEMOGLOBIN [id number] 03:46:35* Test Item Value Reference Range Interpretation Comme nts HEMOGLOBIN A1c (test code = 80656) 5.4 % 4.2-5.6 CBC W/AUTO DIFF WITH [id number] 03:27:03* Test Item Value Reference Range Interpretation Comme nts WBC (test code = 1001) 7.6 K/UL 3.5-11.0 RBC (test code = 1002) 5.00 M/UL 3.80-5.40 HEMOGLOBIN (test code = 1003) 15.6 G/DL 11.5-15.5 H HEMATOCRIT (test code = 1004) 47.6 % 34.0-45.0 H MCV (test code = 1005) 95.2 fL 80.0-99.0 MCH (test code = 1006) 31.2 PG 25.0-33.0 MCHC (test code = 1007) 32.8 G/DL 31.0-36.0 RDW (test code = 1038) 12.5 % 11.5-15.0 NEUTROPHILS (test code = 1008) 49.7 % LYMPHOCYTES (test code = 1010) 33.9 % MONOCYTES (test code = 1011) 11.5 % EOSINOPHILS (test code = 1012) 3.9 % BASOPHILS (test code = 1013) 0.5 % IMMATURE GRANULOCYTES (test code = 1036) 0.5 % NUCLEATED RBCS (test code = 1065) 0.0 /100 WBC'S See_Comment [[facility]] The system which generated this result transmitted reference range: 0.0. The reference range was not used to interpret this result as normal/abnormal. PLATELET COUNT (test code = 1015) 181 K/UL 130-400 ABSOLUTE NEUTROPHILS (test code = 1066) 3.79 K/UL 1.50-7.50 ABSOLUTE LYMPHOCYTES (test code = 1067) 2.59 K/UL 1.00-4.00 ABSOLUTE MONOCYTES (test code = 1068) 0.88 K/UL 0.20-1.00 ABSOLUTE EOSINOPHILS (test code = 1040) 0.30 K/UL 0.00-0.50 ABSOLUTE BASOPHILS (test code = 1069) 0.04 K/UL 0.00-0.20 ABS IMMATURE GRANULOCYTES (test code = 1020) 0.04 K/UL 0.00-0.10 ABS NUCLEATED RBCS (test code = 72075) 0.00 K/UL 0.00-0.11 LIPID [id number] 05:09:36* Test Item Value Reference Range Interpretation Comme nts CHOLESTEROL (test code = 2210) 195 MG/DL <200 TRIGLYCERIDES (test code = 2232) 192 MG/DL <150 H HDL CHOLESTEROL (test code = 2220) 49 MG/DL >39 CALC LDL CHOL (test code = 2237) 115 MG/DL <100 H NOTE: CALCULATED LDL IS BASED ON ANGIE-CHEN METHOD WHICHINCLUDES ADJUSTABLE TRIGLYCERIDE:VLDL CHOLESTEROL RATIO.THIS FACTOR VARIES BY MEASURED TRIGLYCERIDE AND NON-HDLCHOLESTEROL CONCENTRATIONS WITH INCREASED CALCULATED LDL SEENIN HIGHER TRIGLYCERIDE OR LOWER NON-HDL SPECIMENS. FOR MOREINFORMATION, SEE CLIENT ANNOUNCEMENT AT [email or web address] RISK RATIO LDL/HDL (test code = 2238) 2.35 RATIO <3.22 UNLESS OTHERW ISE INDICATED, ALL TESTING PERFORMED AT [facility] [address] [place] [address] [employer] MANAGER: DMITRIY SCOTT M.D. CLIA NUMBER [id number] [facility] [place]. [id number] SURGICAL PATHOLOGY [id number] 16:30:45* Test Item Value Reference Range Interpretation Comme nts DIAGNOSIS: (test code = 8200) (NOTE) A) Shave Biopsy - Right side of stomachSeborrheic keratosis. MICROSCOPIC DESCRIPTION: (test code = 8210) (NOTE) A) Sections of s kin show a plaque-like thickening of theepidermis which is variably hyperkeratotic, hyperpigmented, andwhich contains horn cysts. CLINICAL DATA: (test code = 8401) (NOTE) Not specified GROSS DESCRIPTION: (test code = 8220) (NOTE) A) SPECIMEN L ABELED: Right side of stomachSIZE/WEIGHT: 1.4x0.5x0.1 cm SPECIMEN COLOR: TanNUMBER OF TISSUE PIECES: 1SUBMITTED IN CASSETTE(S): [id number]: FormalinCOMMENTS:Quadrisec shirley and entirely submitted. PATHOLOGIST: (test code = 8250) (NOTE) Zhen guillaume M.D. Board certified in Dermatopathology,Molecular Genetic Pathology, Anatomic and Clinical Pathology. Specimens processed at [facility], [address] [place] [address], , CLIA: [id number] interpreted at Dr. Zhen Nunez M.D. Dermatopathologist,[address] [place] [address], , CLIA:[id number] CPT: (test code = 8400) (NOTE) [id number] [facility] jack s important pathology staff changes effective 09/13/2022. New pathology staff will provide uninterrupted, excellent patient care and clinical consultation. See URL: [email or web address]. UNLESS OTHERWISE INDICATED, ALL TESTING PERFORMED AT [facility] [address] [place] [address] [employer] SERVICES MANAGER: KANWAL ROTHMAN M.D. CLIA NUMBER [id number] [facility] [place]. [id number] TROPONIN [id number] 17:07:35* Test Item Value Reference Range Interpretation Comments TROPONIN I (test code = 4650235487) 0.005 ng/mL See_Comment [Automated message] The system which generated this result transmitted reference range: <=0.034. The reference range was not used to interpret this result as normal/abnormal. AMADEO (test code = AMADEO) Reference (Normal) Range (defined by the 99th percentile reference limit): <= 0.034 ng/mL Note: Cardiac troponin begins to rise 3-4 hours after the onset of ischemia. Repeat in 4-6 hours if the sample was drawn within 3-4 hours of the onset of the symptom and found normal. Diagnosis of myocardial injury is made with acute changes in cTn concentrations with at least one serial sample above the 99th percentile upper reference limit (URL), taken together with the patient's clinical presentation. Biotin has been reported to cause a negative bias, interpret results relative to patient's use of biotin. Lab Interpretation (test code = 53499-1) Normal [facility] METABOLIC PANEL (NA, K, CL, CO2, GLUCOSE, BUN, CREATININE, CA)2021-04-17 16:55:56* Test Item Value Reference Range Interpretation Comme nts NA (test code = 9356136408) 138 mmol/L 135-145 K (test code = 5597798786) 3.9 mmol/L 3.5-5.0 CL (test code = 0140439776) 103 mmol/L 98-108 CO2 TOTAL (test code = 9395015001) 30 mmol/L 23-31 AGAP (test code = 6352826026) 2-16 BUN (test code = 5166922783) 10 mg/dL 7-23 GLUCOSE (test code = 9274761079) 100 mg/dL 70-110 CREATININE (test code = 9052750882) 0.48 mg/dL 0.50-1.04 L CALCIUM (test code = 6403456573) 9.1 mg/dL 8.6-10.6 eGFR (test code = 6976678023) mL/min/1.73m2 AMADEO (test code = AMADEO) Association of Glomerular Filtration Rate (GFR) and Staging of Kidney Disease* + --+ --+ ------+| GFR (mL/min/1.73 m2) ?| With Kidney Damage ?| ?Without Kidney Damage+ --------+ --------+ +| ?>90 ?| ?Stage one ?| ? Normal ?+ ---+ ---+ -------+| ?60-89 ?| ?Stage two ?| ? Decreased GFR ? + --+ --+ ------+| ?30-59 ?| ?Stage three ?| ? Stage three ? + --+ --+ ------+| ?15-29 ?| ?Stage four ? | ? Stage four ?+ ---+ ---+ -------+| ?<15 (or dialysis) ? ?| ?Stage five ? | ? Stage five ?+ ---+ ---+ -------+ *Each stage assumes the associated GFR level has been in effect for at least three months. ?Stages 1 to 5, with or without kidney disease, indicate chronic kidney disease. Notes: Determination of stages one and two (with eGFR >59mL/min/1.73 m2) requires estimation of kidney damage for at least three months as defined by structural or functional abnormalities of the kidney, manifested by either:Pathological abnormalities or Markers of kidney damage (including abnormalities in the composition of the blood or urine or abnormalities in imaging tests). Lab Interpretation (test code = 54277-6) [facility] (ALB,T.PRO,BILI T,BU/BC,ALT,AST,ALK PHOS)2021-04-17 16:55:36* Test Item Value Reference Range Interpretation Comme nts TOTAL BILI (test code = 5896517052) 0.6 mg/dL 0.1-1.1 BILI UNCON (test code = 3901993926) 0.5 mg/dL 0.1-1.1 BILI CONJ (test code = 5046911156) 0.0 mg/dL 0.0-0.3 T PROTEIN (test code = 6335651117) 7.5 g/dL 6.3-8.2 ALBUMIN (test code = 6520606467) 4.1 g/dL 3.5-5.0 ALK PHOS (test code = 6578507021) 64 U/L 34-122 ALTv (test code = 1742-6) 18 U/L 5-35 AST(SGOT) (test code = 9338381167) 21 U/L 13-40 Lab Interpretation (test cod e = 41585-3) Normal [facility] WITH [id number] 16:49:12* Test Item Value Reference Range Interpretation Comme nts WBC (test code = 6690-2) See_Comment [[facility]] The system which generated this result transmitted reference range: 4.30 - 11.10 10*3/?L. The reference range was not used to interpret this result as normal/abnormal. RBC (test code = 789-8) See_Comment [Automated messa ge] The system which generated this result transmitted reference range: 3.93 - 5.25 10*6/?L. The reference range was not used to interpret this result as normal/abnormal. HGB (test code = 718-7) 13.9 g/dL 11.6-15.0 HCT (test code = 4544-3) 42.1 % 35.7-45.2 MCV (test code = 787-2) 93.3 fL 80.6-95.5 MCH (test code = 785-6) 30.8 pg 25.9-32.8 MCHC (test code = 786-4) 33.0 g/dL 31.6-35.1 RDW-SD (test code = 04431-9) 42.4 fL 39.0-49.9 RDW-CV (test code = 788-0) 12.2 % 12.0-15.5 PLT (test code = 777-3) See_Comment L [Automated messa ge] The system which generated this result transmitted reference range: 166 - 358 10*3/?L. The reference range was not used to interpret this result as normal/abnormal. MPV (test code = 31224-0) 9.7 fL 9.5-12.9 NRBC/100 WBC (test code = 5198166325) See_Comment [Automated [email or web address] ssage] The system which generated this result transmitted reference range: 0.0 - 10.0 /100 WBCs. The reference range was not used to interpret this result as normal/abnormal. NRBC x10^3 (test code = 2500982117) <0.01 See_Comment [Automated messa ge] The system which generated this result transmitted reference range: 10*3/?L. The reference range was not used to interpret this result as normal/abnormal. GRAN MAT (NEUT) % (test code = 770-8) 63.2 % IMM GRAN % (test code = 0976545408) 0.40 % LYMPH % (test code = 736-9) 22.6 % MONO % (test code = 5905-5) 12.2 % EOS % (test code = 713-8) 1.3 % BASO % (test code = 706-2) 0.3 % GRAN MAT x10^3(ANC) (test code = 0277347885) 6.31 10*3/uL 1.88-7.09 IMM GRAN x10^3 (test code = 5330323836) 0.04 10*3/uL 0.00-0.06 LYMPH x10^3 (test code = 731-0) 2.26 10*3/uL 1.32-3.29 MONO x10^3 (test code = 742-7) 1.22 10*3/uL 0.33-0.92 H EOS x10^3 (test code = 711-2) 0.13 10*3/uL 0.03-0.39 BASO x10^3 (test code = 704-7) 0.03 10*3/uL 0.01-0.07 Lab Interpretation (test code = 39565-9) [facility]normal [facility] [id number] 15:50:50* Test Item Value Reference Range Interpretation Comments TROPONIN I (test code = 6318653718) 0.002 ng/mL See_Comment [Automated message] The system which generated this result transmitted reference range: <=0.034. The reference range was not used to interpret this result as normal/abnormal. AMADEO (test code = AMADEO) Reference (Normal) Range (defined by the 99th percentile reference limit): <= 0.034 ng/mL Note: Cardiac troponin begins to rise 3-4 hours after the onset of ischemia. Repeat in 4-6 hours if the sample was drawn within 3-4 hours of the onset of the symptom and found normal. Diagnosis of myocardial injury is made with acute changes in cTn concentrations with at least one serial sample above the 99th percentile upper reference limit (URL), taken together with the patient's clinical presentation. Biotin has been reported to cause a negative bias, interpret results relative to patient's use of biotin. Lab Interpretation (test code = 31827-1) Normal [facility] (62573)2021-04-14 15:39:50* Test Item Value Reference Range Interpretation Comme nts NA (test code = 3889985562) 138 mmol/L 135-145 K (test code = 6319038898) 3.8 mmol/L 3.5-5.0 CL (test code = 1995456554) 108 mmol/L 98-108 CO2 TOTAL (test code = 9598615321) 24 mmol/L 23-31 AGAP (test code = 1380452481) 2-16 BUN (test code = 2213434226) 13 mg/dL 7-23 GLUCOSE (test code = 2761613346) 97 mg/dL 70-110 CREATININE (test code = 9160275869) 0.52 mg/dL 0.50-1.04 TOTAL BILI (test code = 7047624670) 0.6 mg/dL 0.1-1.1 CALCIUM (test code = 8411947069) 8.6 mg/dL 8.6-10.6 T PROTEIN (test code = 1635867150) 6.6 g/dL 6.3-8.2 ALBUMIN (test code = 7295448647) 3.8 g/dL 3.5-5.0 ALK PHOS (test code = 8987968560) 59 U/L 34-122 ALTv (test code = 1742-6) 20 U/L 5-35 AST(SGOT) (test code = 9039358082) 23 U/L 13-40 eGFR (test code = 6212528409) mL/min/1.73m2 AMADEO (test code = AMADEO) Association of Glomerular Filtration Rate (GFR) and Staging of Kidney Disease* + + +- +| GFR (mL/min/1.73 m2) ?| With Kidney Damage ?| ?Without Kidney Damage+ ------+ ----+ ------+| ?>90 ?| ?Stage one ?| ? Normal ?+ -+ + -+| ?60-89 ?| ?Stage two ?| ? Decreased GFR ? + + +- +| ?30-59 ?| ?Stage three ?| ? Stage three ? + + +- +| ?15-29 ?| ?Stage four ? | ? Stage four ?+ -+ + -+| ?<15 (or dialysis) ? ?| ?Stage five ? | ? Stage five ?+ -+ + -+ *Each stage assumes the associated GFR level has been in effect for at least three months. ?Stages 1 to 5, with or without kidney disease, indicate chronic kidney disease. Notes: Determination of stages one and two (with eGFR >59mL/min/1.73 m2) requires estimation of kidney damage for at least three months as defined by structural or functional abnormalities of the kidney, manifested by either:Pathological abnormalities or Markers of kidney damage (including abnormalities in the composition of the blood or urine or abnormalities in imaging tests). [facility], [id number] 15:39:12* Test Item Value Reference Range Interpretation Comme [facility] LIPASE (test code = 2121067676) 70 U/L 0-220 Lab Interpretation (test cod e = 41101-9) Normal [facility]TT2021-09-30 15:38:11* Test Item Value Reference Range Interpretation Comme [facility] APTT Patient (test code = 3173-2) See_Comment [Automated message] The system which generated this result transmitted reference range: 23 - 38 Seconds. The reference range was not used to interpret this result as normal/abnormal. AMADEO (test code = AMADEO) The [facility] patient population mean normal value for aPTT is 30 seconds. Lab Interpretation (test code = 16058-1) Normal [facility] HospitalPROT[facility] / [id number] 15:36:10* Test Item Value Reference Range Interpretation Comme [facility] PROTIME PATIENT (test code = 5964-2) See_Comment [Automated URBANARA] The system which generated this result transmitted reference range: 12.0 - 14.7 Seconds. The reference range was not used to interpret this result as normal/abnormal. INR (test code = 6301-6) Normal INR <1.1; Warfarin Therapeutic range 2.0 to 3.0 or 2.5 to 3.5, depending upon the indications. Lab Interpretation (test code = 27134-3) Normal [facility] HospitalCBC WITH [id number] 15:32:30* Test Item Value Reference Range Interpretation Comme [facility] WBC (test code = 6690-2) See_Comment [Automated URBANARA] The system which generated this result transmitted reference range: 4.30 - 11.10 10*3/?L. The reference range was not used to interpret this result as normal/abnormal. RBC (test code = 789-8) See_Comment [[facility]ated [facility]] The system which generated this result transmitted reference range: 3.93 - 5.25 10*6/?L. The reference range was not used to interpret this result as normal/abnormal. HGB (test code = 718-7) 13.5 g/dL 11.6-15.0 HCT (test code = 4544-3) 40.9 % 35.7-45.2 MCV (test code = 787-2) 92.3 fL 80.6-95.5 MCH (test code = 785-6) 30.5 pg 25.9-32.8 MCHC (test code = 786-4) 33.0 g/dL 31.6-35.1 RDW-SD (test code = 73847-7) 42.3 fL 39.0-49.9 RDW-CV (test code = 788-0) 12.4 % 12.0-15.5 PLT (test code = 777-3) See_Comment L [[facility]] The system which generated this result transmitted reference range: 166 - 358 10*3/?L. The reference range was not used to interpret this result as normal/abnormal. MPV (test code = 61336-9) 9.4 fL 9.5-12.9 L IPF % (test code = 1885730903) 1.4 % 1.3-7.7 Platelet count measured by fluorescence method. NRBC/100 WBC (test code = 7112863238) See_Comment [Automated [employer]] The system which generated this result transmitted reference range: 0.0 - 10.0 /100 WBCs. The reference range was not used to interpret this result as normal/abnormal. NRBC x10^3 (test code = 1449367056) <0.01 See_Comment [[facility]] The system which generated this result transmitted reference range: 10*3/?L. The reference range was not used to interpret this result as normal/abnormal. GRAN MAT (NEUT) % (test code = 770-8) 60.9 % IMM GRAN % (test code = 2564703205) 0.30 % LYMPH % (test code = 736-9) 27.4 % MONO % (test code = 5905-5) 9.7 % EOS % (test code = 713-8) 1.5 % BASO % (test code = 706-2) 0.2 % GRAN MAT x10^3(ANC) (test code = 3524867436) 5.27 10*3/uL 1.88-7.09 IMM GRAN x10^3 (test code = 1762340091) 0.03 10*3/uL 0.00-0.06 LYMPH x10^3 (test code = 731-0) 2.37 10*3/uL 1.32-3.29 MONO x10^3 (test code = 742-7) 0.84 10*3/uL 0.33-0.92 EOS x10^3 (test code = 711-2) 0.13 10*3/uL 0.03-0.39 BASO x10^3 (test code = 704-7) <0.03 0.01-0.07 Lab Interpretation (test code = 76433-5) Abnormal [facility] Notes Date/Time Note Provider Source 2023-02-27 09:32:08 /oB757Qw/vy6bIzHLucz lj2urcUpycJ 0/7mbEn7a8O9iWB8nF86MItJMx0X91f Wi5110-11-39L81:32:08 Images from the original note were not included.Called patient for results patient verbalized understanding with no further questions. Rosendo Conti DO P Pulmonary NursePlease let patient know that pulmonary function testing is essentially normal. Thanks. 44791-9Bryzjmaxt encounter NqofWW9249-69-86S48:38:12Teleph one encounter NoteTXT1.2.840.496446.1.13.104. 2.7.2.083369|[id number] [facility] zbbh01820-9CilzLF865463940Xxsgl da Castillo MA[address] 16482RHJIESZQWIALLLIXWRVXJL4078 -08-15T09:38:121.2.840.053397.1 .72.3.15|1.2.840.562240.1.13.10 4.2.7.2.727879_[id number] Maddy West MA [facility] 2023-02-15 14:50:50 +6UbE5yOtXIgifnFItms XGM9olV0V5w hEGDAnP+S1bexXfJtadQn7zkGb+2u64 /e8251-38-08A53:50:50 Spoke with pharmacist. Patient insurance does not cover the generic albuterol inhaler but will cover the proair respiclick brand name albuterol inhaler. Informed pharmacy they can fill as brand name if insurance prefers. 04327-3Pvhazqtkq encounter JzetUN9127-46-49L41:51:59Teleph one encounter NoteTXT1.2.840.277746.1.13.104. 2.7.2.914570|[id number] ble for patient yafa05257-9WudeEC078304166Suuc Sarina RYDER[address] FyhaUzplyeiamJuavcndytEHZE33516 52009HTNUMGKOYILPEAFOGEBLOK0877 -08-03T14:51:591.2.840.649481.1 .72.3.15|1.2.840.063194.1.13.10 4.2.7.2.727879_[id number] Beata Branch RN [facility] 2023-02-15 14:23:25 nUwkmJnE2x4OdAHnApxO m3UYBUmEDEn o+Stfz5DOh16AxAHqbE2w4i7SLzkhz7 Xj2428-18-90X16:23:25 Markell Toribio is a 67 year old femaleAnisha [facility] not [facility] the RX albuterol 90 mcg/actuation inhaler, but they will cover: lev alburterolpro air - respi clickPls call. Thanks. 57104-7Ygxsyrwzp encounter GhfdCJ3236-42-87C99:25:04Teleph one encounter NoteTXT1.2.840.408409.1.13.104. 2.7.2.889819|[id number] ble for patient ljls99615-4BtvsNI580005622Nljhv en M. Garcia[address] 66839OGKUKNNNZDLUJHXQKWXPHK8378 -08-03T14:25:041.2.840.819970.1 .72.3.15|1.2.840.799531.1.13.10 4.2.7.2.727879_[id number] Macey Holguin [facility] 2023-02-15 12:56:27 DpZMCDfiL3fWKZ82KjZr 7SYQbY0vwWu iTdlb51iZcYycHsIGx3qHluuqpDzvDM X22296-85-65S47:56:27 Okay to refill, prescription sent to pharmacy 81038-6Maaexnuhs encounter ZabgRO0761-86-94A72:56:37Teleph one encounter NoteTXT1.2.840.866011.1.13.104. 2.7.2.849916|[id number] ble for patient bngz60140-7HreaFAQUKUVSRP[address]TXTX[address] 27046GQPIGDGRLUJGMSSNHEQBZJ6644 -08-03T12:56:371.2.840.375318.1 .72.3.15|1.2.840.718857.1.13.10 4.2.7.2.727879_[id number] [facility] 2023-02-15 10:21:13 6udj/4QmoxFob5BxzBT4 ZtRNvzA96EZ eTP0mfECGw4cENjKA0kDbni2s7glhpi NJ3664-92-41L19:21:13 Markell Toribio is a 67 year old female. Patient is calling stating that the pharmacy has not received the refill for albuterol. Please advise [facility]acy #[id number] - [place], [place] - [address] [place] [address] [address]Qmzqv: [phone] 14019-5Mphycdsru encounter AftxHW0689-10-96C92:25:13Teleph one encounter NoteTXT1.2.840.373250.1.13.104. 2.7.2.589669|[id number] [facility] fnsu34656-2OhheFS117774634Hxkmh kendra Alfaro [address] UcxaHlvsmnncfWkkiboeglBZLW12191 12729JHMMOCDKNLXVPARCXUMLBI7110 -08-03T10:25:131.2.840.582220.1 .72.3.15|1.2.840.888179.1.13.10 4.2.7.2.727879_[id number] Dianne Alfaro V [facility] 2023-02-14 10:04:02 eRVUNuyginPLpn83gVfn cIHJOmXz7+N 9I/pToqyqOiYC+0XH5nOgYI5g3wZv2y Uz6737-60-14B10:04:02 LIZ 12/12/22NOV 05/14/23"Regarding dyspnea, suspect this is related to underlying COPD given prolonged tobacco use hx and emphysema on chest imaging. Will obtain PFTs and initiate therapy w/ symbicort. Already using albuterol PRN. After confirming diagnosis of COPD, can discuss A1AT testing, Pulm rehab, etc"Patient had PFT yesterday. Will send refill of Symbicort to get to NOV. Called patient and left voicemail to ask her pharmacy to send a prescription refill request for the albuterol, as this is not on her medication list. 88314-4Ofejiqogv encounter YjnpFV4593-16-53N76:10:55Teleph one encounter NoteTXT1.2.840.797418.1.13.104. 2.7.2.991008|[id number] ble for patient zpuq65590-0WeudPX327317263Cjbj Sarina RYDER[address] GwjbVawaqvrgjBcquftxptIXKA7[address] 30825YTBSSMMFPXIRDETABEDTLF2195 -08-02T10:10:551.2.840.284457.1 .72.3.15|1.2.840.599002.1.13.10 4.2.7.2.727879_[id number] Beata Branch RN [facility] 2023-02-13 16:04:04 rLXvvdEnyN95pfO1IGBH K3Xpw22FVGq ZNxjZOmHbS5pFw9vDp3ry5S17XmI5O2 xr5254-67-95I87:04:04 Markell Toribio is a 67 year old femalePatient needing refill of budesonide-formoteroL (SYMBICORT) 160-4.5 mcg/actuation inhalerAlbuterol sent into pharmacy. [id number] [place], [place] - [address] AT [facility] [address]-5Behohushu encounter IpdgBY2398-31-16R36:06:22Teleph one encounter NoteTXT1.2.840.799782.1.13.104. 2.7.2.583865|[id number] ble for patient rnon05162-7OnhuLXEJCPZHOB[address] CalkRchbhefupRpuvcgghcTNGR[address] 80002OJLFUAKVSMCJETEJQFOWFA8695 -08-01T16:06:221.2.840.297819.1 .72.3.15|1.2.840.506041.1.13.10 4.2.7.2.727879_[id number] [facility]
[2023-08-04 12:29] LABS: Absolute Lymphocytes (CBC) 1.8 K/uL (0.7-4.9); MCV 97.4 fL (80-100); MPV 7.1 fL (7.6-11.3); Platelets 231 thou/uL (152-406); RBC Red Blood Cell Count 4.41 M/uL (3.86-4.86)
[2023-08-04 12:47] LABS: Potassium 3.7 mEq/L (3.5-5.1); Troponin High Sensitivity 5.2 pg/mL (<58.9)
--- NOTE | 2023-08-04 12:48 | RAD REPORT ---
EXAM DESCRIPTION: Dario Single View08/04/2023 12:25 pm CLINICAL HISTORY: SOB COMPARISON: Chest Single View dated 05/12/2019; Abdomen Acute Series dated 06/24/2017; Thorax W/ Con dated 05/12/2019 TECHNIQUE: Portable AP view of the chest. FINDINGS: Bibasilar interstitial prominence and hazy opacification. Linear peripheral left lower lob e opacity favored to represent atelectasis. Background hyperlucency which may suggest COPD. . No pne umothorax or effusion. The cardiomediastinal contours are unremarkable. IMPRESSION: Bibasilar interstitial prominence and hazy opacification, may reflect mild pulmonary curtis ma or atelectasis with scarring.
--- NOTE | 2023-08-04 13:45 | EDPHYS ---
Physician Documentation [facility] Name: Dinora Forrest Age: 67 yrs Sex: Female : 1955 Arrival Date: 08/04/2023 Time: 11:51 Bed 7 Private MD: ED Physician Armando Viveros HPI: 08/04 12:05 This 67 yrs old Female presents to ER via Unassigned with complaints of Chest Pain, ec2 Shortness Of Breath. 12:05 Patient arrives today for chest tightness and shortness of breath. Patient reports 3 ec2 weeks of symptoms. States that she has been having cough and cold symptoms, has been on Augmentin and prednisone for the past week. States there was specifically brought her in today and that she felt some chest tightness last night. Patient reports history of COPD, smoker, uses inhalers.. Historical: - Allergies: 12:11 Benadryl; ld1 - PMHx: 12:11 Anxiety; gastric ulcer; Hypertension; ld1 - Immunization history:: Adult Immunizations up to date. - Social history:: Smoking status: Patient reports the use of cigarette tobacco products, smokes one pack cigarettes per day. Patient/guardian denies using alcohol. ROS: 12:05 Constitutional: as per hpi ec2 Exam: 12:05 Constitutional: GEN: NAD Head: atraumatic Eyes: EOMI Ears: External ears are ec2 normal. CV: regular rate LUNGS: no respiratory distress, no wheezes, no rales, no rhonchi ABD: non-distended SKIN: no evidence of rashes MSK: no evidence of trauma NEURO: moves all extremities equally Vital Signs: 12:10 Pulse 77; Resp 20; Temp 98.6(O); Pulse Ox 96% on R/A; Weight 54.43 kg; Height 5 ft. 2 ld1 in. ; Pain 8/10; 12:10 Body Mass Index 21.95 (54.43 kg, 157.48 cm) ld1 12:10 Pain Scale: Adult ld1 MDM: 11:59 Patient medically screened. ec2 12:05 ED course: Patient arrives today for chest tightness and shortness of breath. ec2 Examination remarkable for reassuring cardiopulmonary examination. Will obtain lab work, EKG, chest x-ray for further assessment patient complaint.. 12:18 ED course: EKG independently reviewed and interpreted by me, shows normal sinus rhythm, ec2 rate of 76, no acute ST segment elevations, nonconcerning intervals.. 13:44 Data reviewed: vital signs. ED course: On reassessment patient is well-appearing in no ec2 acute distress, I suspect patient's COPD causing her general shortness of breath. No evidence to support ACS. Will discharge home. Return precautions given.. 08/04 12:05 Order name: Basic Metabolic Panel; Complete Time: 12:57 ec2 08/04 12:05 Order name: CBC with Diff; Complete Time: 12:57 ec2 08/04 12:05 Order name: NT PRO-BNP; Complete Time: 12:57 ec2 08/04 12:05 Order name: Troponin HS; Complete Time: 12:57 ec2 08/04 12:05 Order name: Influenza Screen (a \T\ B); Complete Time: 13:32 ec2 08/04 12:05 Order name: SARS-COV-2 RT PCR; Complete Time: 13:45 ec2 08/04 12:05 Order name: XRAY Chest (1 view); Complete Time: 12:57 ec2 08/04 12:05 Order name: EKG; Complete Time: 12:06 ec2 08/04 12:05 Order name: Cardiac monitoring; Complete Time: 12:10 ec2 08/04 12:05 Order name: EKG - Nurse/Tech; Complete Time: 12:10 ec2 08/04 12:05 Order name: IV Saline Lock; Complete Time: 12:25 ec2 08/04 12:05 Order name: Labs collected and sent; Complete Time: 12:25 ec2 08/04 12:05 Order name: O2 Per Protocol; Complete Time: 12:10 ec2 08/04 12:05 Order name: O2 Sat Monitoring; Complete Time: 12:10 ec2 Administered Medications: No medications were administered Disposition Summary: 08/04/23 13:44 Discharge Ordered Notes: Location: Home ec2 Condition: Stable ec2 Diagnosis - Dyspnea, unspecified ec2 - COPD/ Chronic obstructive pulmonary disease, unspecified ec2 Followup: ec2 - With: Private Physician - When: - Reason: Recheck today's complaints Discharge Instructions: - Discharge Summary Sheet ec2 Forms: - Medication Reconciliation Form ec2 - Thank You Letter ec2 - Antibiotic Education ec2 - Prescription Opioid Use ec2 - Patient Portal Instructions ec2 - Leadership Thank You Letter ec2 Signatures: Dispatcher [employer] Shadia Diaz RN RN ld1 Armando Viveros MD MD ec2
--- NOTE | 2023-08-04 13:45 | ER ---
Nurse's Notes [facility] Name: Dinora Forrest Age: 67 yrs Sex: Female : 1955 Arrival Date: 08/04/2023 Time: 11:51 Bed 7 Private MD: Diagnosis: Dyspnea, unspecified;COPD/ Chronic obstructive pulmonary disease, unspecified Presentation: 08/04 12:10 Chief complaint: Patient states: Chest pain and SOB X 2 days. Coronavirus screen: ld1 Client presents with at least one sign or symptom that may indicate coronavirus-19. Standard/surgical mask placed on the client. Ebola Screen: No symptoms or risks identified at this time. Initial Sepsis Screen: Does the patient meet any 2 criteria? No. Patient's initial sepsis screen is negative. Does the patient have a suspected source of infection? No. Patient's initial sepsis screen is negative. Risk Assessment: Do you want to hurt yourself or someone else? Patient reports no desire to harm self or others. Onset of symptoms was August 04, 2023. 12:10 Method Of Arrival: Ambulatory ld1 12:10 Acuity: MIRTA 3 ld1 Triage Assessment: 12:11 General: Appears in no apparent distress. uncomfortable, Behavior is cooperative, ld1 anxious. Pain: Complains of pain in chest Pain does not radiate. Pain currently is 8 out of 10 on a pain scale. Quality of pain is described as pressure, sharp, Pain began 2-3 days ago. Is continuous. EENT: No signs and/or symptoms were reported regarding the EENT system. Neuro: Level of Consciousness is awake, alert, obeys commands, Oriented to person, place, time, situation. Cardiovascular: Reports chest pain, shortness of breath, Capillary refill < 3 seconds Patient's skin is warm and dry. Rhythm is sinus rhythm Chest pain is described as mild. Respiratory: Airway is patent Respiratory effort is even, unlabored. GI: Abdomen is flat, non-distended. : No signs and/or symptoms were reported regarding the genitourinary system. Derm: No signs and/or symptoms reported regarding the dermatologic system. Musculoskeletal: No signs and/or symptoms reported regarding the musculoskeletal system. Historical: - Allergies: 12:11 Benadryl; ld1 - PMHx: 12:11 Anxiety; gastric ulcer; Hypertension; ld1 - Immunization history:: Adult Immunizations up to date. - Social history:: Smoking status: Patient reports the use of cigarette tobacco products, smokes one pack cigarettes per day. Patient/guardian denies using alcohol. Screenin:12 [facility] ED Fall Risk Assessment (Adult) History of falling in the last 3 months, ld1 including since admission No falls in past 3 months (0 pts). Abuse screen: Denies threats or abuse. Denies injuries from another. Nutritional screening: No deficits noted. Tuberculosis screening: No symptoms or risk factors identified. Assessment: 12:12 Reassessment: See triage assessment. Pain: Complains of pain in chest. ld1 Vital Signs: 12:10 Pulse 77; Resp 20; Temp 98.6(O); Pulse Ox 96% on R/A; Weight 54.43 kg; Height 5 ft. 2 ld1 in. ; Pain 8/10; 12:10 Body Mass Index 21.95 (54.43 kg, 157.48 cm) ld1 12:10 Pain Scale: Adult ld1 ED Course: 11:53 Patient arrived in ED. im 11:54 Armando Viveros MD is Attending Physician. ec2 12:10 Shadia Mistry, ALEKSEY is Primary Nurse. ld1 12:11 Triage completed. ld1 12:11 Arm band placed on right wrist. EKG completed in triage. Results shown to MD. ld1 12:12 Patient has correct armband on for positive identification. Placed in gown. Bed in low ld1 position. Call light in reach. Side rails up X2. bus driver/monitor on. Pulse ox on. NIBP on. Door closed. Noise minimized. Warm blanket given. 12:12 No provider procedures requiring assistance completed. Patient maintains SpO2 ld1 saturation greater than 95% on room air. 12:25 SARS-COV-2 RT PCR Sent. ld1 12:25 Influenza Screen (a \T\ B) Sent. ld1 12:25 Inserted saline lock: 20 gauge in right wrist, using aseptic technique. Blood collected.ld1 12:27 XRAY Chest (1 view) In Process Unspecified. EDMS Administered Medications: No medications were administered Medication: 12:12 VIS not applicable for this client. ld1 Outcome: 13:44 Discharge ordered by . ec2 14:00 Patient left the ED. hb Signatures: Dispatcher [employer] EDMS Barker, Leyla, RN RN Shadia Mistry RN RN ld1 Stefanie Mann Edwin, MD MD ec2
[2023-08-04 17:02] VITALS: TEMP 98.6; O2SAT 96
--- NOTE | 2023-08-06 16:58 | EKG ---
Test Date: 2023-08-04 Test Time: 12:06:44 Dust Sampler: BENJAMIN MEASUREMENT RESULTS: Intervals: Rate: 76 UT: 122 QRSD: 92 QT: 402 QTc: 452 [place]: P: 66 UT: 122 QRS: 88 T: 68 INTERPRETIVE STATEMENTS: Normal sinus rhythm Normal ECG Compared to ECG 05/12/2019 13:20:23 Sinus tachycardia no longer present Right-axis deviation no longer present Electronically Signed On 08-06-23 16:52:46 GLOVE SEWER by Talha Bender
== END ==
LOC: ER 11:51
DX: R06.00 Dyspnea, unspecified (principal); J44.9 Chronic obstructive pulmonary disease, unspecified; R05.9 Cough, unspecified; R07.89 Other chest pain; Z11.52 Encounter for screening for COVID-19; Z72.0 Tobacco use; F41.9 Anxiety disorder, unspecified; I10 Essential (primary) hypertension
CPT/HCPCS: 36415; 71045; 80048; 83880; 84484; 85025; 87635; 87804; 93005; 99285